=== PATIENT | female | born 1965 | race African-American/Black ===

== ENCOUNTER 2017-03-30 13:29 | Emergency (ER) | payer OTHER ==
[~2017-03-30] VITALS: Ht 162.6 cm; Wt 127.0 kg
[~2017-03-30 13:29] MED LIST: DOXYCYCLINE 10100 MG PO; FLONASE 0.05%50 MCG NASAL; HYZAAR 50-12.51 EACH PO; VENTOLIN HFA 1818 GM INH
[2017-03-30 14:15] VITALS: BP 136/78
== END 2017-03-30 14:16 | disposition home or self-care (01) ==
LOC: ER 13:29
DX: T81.30XA Disruption of wound, unspecified, initial encounter (principal); I10 Essential (primary) hypertension; J45.909 Unspecified asthma, uncomplicated; Z88.0 Allergy status to penicillin; Z88.2 Allergy status to sulfonamides; Z98.890 Other specified postprocedural states; Z48.02 Encounter for removal of sutures

== ENCOUNTER 2018-11-24 21:21 | Emergency (ER) | payer OTHER ==
[~2018-11-24] VITALS: Ht 162.6 cm; Wt 127.0 kg
[2018-11-24 22:00] LABS: ABSOLUTE NEUTROPHILS 5.5 thou/uL (1.4-8.2); BASOPHILS 0.6 % (0.0-2.0); EOSINOPHILS 2.3 % (0.0-3.0); HEMATOCRIT 34.5 % (37.0-47.0); HEMOGLOBIN 11.3 gm/dL (12.0-15.0); LYMPHOCYTES 28.6 % (24.0-44.0); MCH 26.2 pg (26.0-34.0); MCHC 32.6 g/dL (28.0-37.0); MCV 80.4 fL (80.0-100.0); MONOCYTES 8.1 % (1.0-8.0); PLATELET COUNT 326 thou/uL (150-400); POLYS 60.4 % (36.0-66.0); RBC 4.29 mil/uL (4.20-5.00); RDW 14.2 % (10.5-14.5); WBC 9.1 thou/uL (4.0-11.0)
[2018-11-24 22:08] LABS: ANION GAP 8 mmol/L (7-16); BUN 15 mg/dL (7-18); CALCIUM 9.3 mg/dL (8.5-10.1); CHLORIDE 102 mmol/L (98-107); CO2 29 mmol/L (21-32); CREATININE 0.9 mg/dL (0.6-1.0); GLUCOSE 99 mg/dL (74-106); POTASSIUM 4.2 mmol/L (3.5-5.1); SODIUM 139 mmol/L (136-145)
[2018-11-24 22:17] LABS: ALBUMIN 2.9 g/dL (3.4-5.0); MAGNESIUM 1.5 mg/dL (1.8-2.4); SGOT 17 U/L (15-37); SGPT 26 U/L (30-65); TOTAL BILIRUBIN 0.1 mg/dL (<0.1-1.0); TOTAL PROTEIN 7.6 g/dL (6.4-8.2); TROPONIN-I <0.06 ng/mL (<0.06)
[2018-11-24] MEDS ORDERED: BENTYL 20 MG TA20 M1 PO (23:44)
[2018-11-24] MEDS ORDERED: AFRIN30 ML SPRAY (23:44)
[2018-11-24] MEDS ORDERED: PEPCID40 MG PO (23:44)
[2018-11-25 00:09] VITALS: BP 139/78
--- NOTE | 2018-11-25 07:36 | EKG ---
[place] [address] [facility] [facility] [place] [address] ELECTROCARDIOGRAM REPORT Name: CARLA VORA Room #: DEP [facility] Francisco#: [id number] ������������������ Admission: 11/24/18 ������������������ Attend Phys: Discharge: 11/25/18 ������������������ Date of : 69 Report #: [id number] ����������������������������������������������������������������� [id number] THIS REPORT FOR: //name// [facility] ED Test Date: 2018-11-24 Test Time: 21:34:48 Pat Name: CARLA VORA Department: Room: Gender: F Pantry Cook: NIKOLAI : 1965 Requested By: Vish Thompson Order Number: [id number] MD: Ricki Major Measurements Intervals [place] Rate: 77 P: 46 AK: 166 QRS: 20 QRSD: 78 T: 7 QT: 355 QTc: 402 Interpretive Statements Sinus rhythm Normal tracing No previous ECG available for comparison Electronically Signed On 11-25-2018 7:35:45 CDT by Ricki Major [email or web address] ��������������������������������������������� <ELECTRONICALLY SIGNED> ���������������������������������������� By: Ricki Major MD, [facility] ��������������������������������������������� 11/25/18 [id number] Ricki Major MD, FAC /EPI
== END 2018-11-25 00:11 | disposition home or self-care (01) ==
LOC: ER 21:21
PROVIDERS: Emergency Medicine
DX: B34.9 Viral infection, unspecified (principal); I10 Essential (primary) hypertension; J45.909 Unspecified asthma, uncomplicated; Z88.0 Allergy status to penicillin; Z88.2 Allergy status to sulfonamides; Z90.49 Acquired absence of other specified parts of digestive tract; Z98.890 Other specified postprocedural states